=== PATIENT | female | born 1975 | race Caucasian/White ===

== ENCOUNTER 2023-02-08 10:36 | Emergency (ER) | payer OTHER ==
[~2023-02-08] VITALS: Wt 86.2 kg
[2023-02-08] VITALS (18 sets, daily range): BP systolic 92–157; BP diastolic 58–127
[2023-02-08 11:38] LABS: BILIRUBIN 2+ (Negative); BLOOD Trace-Lysed (Negative); CLARITY Cloudy (Clear); COLOR Dark Yellow (Yellow); GLUCOSE Negative (Negative); KETONE Trace (Negative); LEUKO ESTERASE 1+ (Negative); NITRITE Positive (Negative); SPECIFIC GRAVITY >= 1.030 (1.001-1.030)
[2023-02-08 12:14] LABS: URINE AMPHETAMINES Negative (1000ng/ml); URINE BARBITURATES Negative (200ng/ml); URINE BENZODIAZEPINES Positive (200ng/ml); URINE CANNABINOIDS (THC) Positive (50ng/ml); URINE COCAINE Negative (300ng/ml); URINE METHADONE Negative (300ng/ml); URINE OPIATES Negative (300ng/ml); URINE PHENCYCLIDINE Negative (25ng/ml)
[2023-02-08 12:15] LABS: BACTERIA 1+; EPITHELIAL CELLS 0-2; HYALINE CAST TNTC
[2023-02-08 12:16] LABS: RBC 0-2 rbc/hpf (0-2)
[2023-02-08 12:19] LABS: ABG BASE EXCESS -0.8 mmol/L (-2.0-2.0); ARTERIAL BLOOD GAS PH 7.336 (7.35-7.45)
[2023-02-08 12:24] LABS: MEAN CORPUSCULAR HGB 31.8 pg (27.0-31.0); MEAN CORPUSCULAR HGB CONC 31.2 g/dl (33.0-37.0); MEAN PLATELET VOLUME 10.5 fl (9.6-12.3); NUCLEATED RED BLOOD CELL 0.2 10*3/uL (0.0-0.0); NUCLEATED RED BLOOD CELL 1.5 % (0.0-0.0); PLATELET COUNT AUTOMATED 308 10*3/uL (130-400); RED BLOOD COUNT 6.45 10*6/uL (4.10-5.10); RED CELL DISTRI WIDTH 17.9 % (0-14.5); WHITE BLOOD COUNT 14.1 10*3/uL (4.8-10.8)
[2023-02-08 12:32] LABS: HEMATOCRIT 65.8 % (37.0-47.0); MANUAL DIFF REFLEX YES
[2023-02-08 12:50] LABS: ALKALINE PHOSPHATASE 122 U/L (46-116); BUN 13 mg/dl (9-23); CHLORIDE 104 mmol/L (98-107); CPK 57 U/L (34-171); LIPASE 38 U/L (12-53); POTASSIUM 3.7 mmol/L (3.4-5.1); SGPT/ALT 30 U/L (5-49); TOTAL PROTEIN 7.2 gm/dL (6.0-8.0)
[2023-02-08 12:59] LABS: ETHYL ALCOHOL < 3.0 mg/dl (<3)
[2023-02-08 13:01] LABS: BASOPHILS 1 % (0-1); TOTAL CELLS COUNTED 100 #CELLS
[2023-02-08 13:02] LABS: PLATELET SUFFICIENCY NORMAL (NORMAL)
[2023-02-08 13:48] LABS: INTERNATIONAL NORM RATIO 1.2 (2.0-3.5)
[2023-02-09 00:10] VITALS: BP 115/76
== END 2023-02-09 01:04 | disposition admitted as inpatient to this hospital (09) ==
LOC: ED 10:36 → EDHOLD 15:55 → ED 15:55
PROVIDERS: Emergency Medicine
DX: J96.90 Respiratory failure, unspecified, unspecified whether with hypoxia or hypercapnia (principal); Z20.822 Contact with and (suspected) exposure to COVID-19; I50.9 Heart failure, unspecified; J98.19 Other pulmonary collapse; J18.9 Pneumonia, unspecified organism; N39.0 Urinary tract infection, site not specified; E87.20 Acidosis, unspecified; R79.89 Other specified abnormal findings of blood chemistry; R00.0 Tachycardia, unspecified; I10 Essential (primary) hypertension; E78.5 Hyperlipidemia, unspecified; F98.8 Other specified behavioral and emotional disorders with onset usually occurring in childhood and adolescence; F32.A Depression, unspecified; F41.9 Anxiety disorder, unspecified; G70.00 Myasthenia gravis without (acute) exacerbation